=== PATIENT | male | born 1995 ===

== ENCOUNTER 2023-06-23 23:34 | Emergency (ER) | payer MEDICAID ==
[2023-06-24 00:20] LABS: Absolute Lymphocytes (CBC) 1.4 K/uL (0.7-4.9); Hematocrit 41.3 % (39.6-49.0); Lymphocytes % 32.4 % (15.3-44.8); MCV 89.8 fL (80-100); MPV 6.2 fL (7.6-11.3); Platelets 274 thou/uL (152-406)
[2023-06-24 00:27] LABS: Urine Bacteria None Seen /HPF (<20); Urine Bilirubin NEGATIVE (Negative); Urine Blood Negative (Negative); Urine Clarity Clear (Clear); Urine Color Colorless (Yellow); Urine Glucose NEGATIVE (Negative); Urine Protein NEGATIVE (Negative); Urine RBC <5 /HPF (None Seen); Urine Urobilinogen Normal (Normal)
--- NOTE | 2023-06-24 03:10 | ER ---
Nurse's Notes [facility] Name: Tomy Sanchez Age: 27 yrs Sex: Male : 1995 Arrival Date: 06/23/2023 Time: 23:34 Bed 15 Private MD: Diagnosis: Hydrocele, unspecified;Testicular pain, unspecified Presentation: 06/23 23:53 Chief complaint: Patient states: bilateral testicular pain X2 days. pt states that the cm10 pain is intermittent. Pt describes the pain as aching. No urinary symptoms. Coronavirus screen: Vaccine status: Patient reports being unvaccinated. Client denies travel out of the [place] in the last 14 days. Ebola Screen: Patient denies travel to an Ebola-affected area in the 21 days before illness onset. No symptoms or risks identified at this time. Initial Sepsis Screen: Does the patient meet any 2 criteria? No. Patient's initial sepsis screen is negative. Does the patient have a suspected source of infection? No. Patient's initial sepsis screen is negative. Risk Assessment: Do you want to hurt yourself or someone else? Patient reports no desire to harm self or others. Onset of symptoms was June 23, 2023. 23:53 Method Of Arrival: Ambulatory cm10 23:53 Acuity: MAGY 3 cm10 Triage Assessment: 23:56 General: Appears in no apparent distress. comfortable, Behavior is calm, cooperative. cm10 Pain: Complains of pain in groin. Historical: - Allergies: 23:56 Acyclovir; cm10 - PMHx: 23:56 shingles; cm10 - Immunization history:: Adult Immunizations. - Social history:: Smoking status: Patient denies any tobacco usage or history of. - Family history:: not pertinent. Screenin:47 [facility] ED Fall Risk Assessment (Adult) History of falling in the last 3 months, ha1 including since admission No falls in past 3 months (0 pts) Confusion or Disorientation No (0 pts) Intoxicated or Sedated No (0 pts) Impaired Gait No (0 pts) Mobility Assist Device Used No (0 pt) Altered Elimination No (0 pt) Score/Fall Risk Level 0 - 2 = Low Risk Oriented to surroundings, Maintained a safe environment, Educated pt \T\ family on fall prevention, incl call for assistance when getting out of bed, Hourly rounding (assess needs \T\ fall precautionary measures) done. Abuse screen: Denies threats or abuse. Denies injuries from another. Nutritional screening: No deficits noted. Tuberculosis screening: No symptoms or risk factors identified. Assessment: 23:47 General: Appears comfortable, Behavior is calm, cooperative. Pain: Complains of pain in ha1 TESTICULAR Pain does not radiate. Pain currently is 8 out of 10 on a pain scale. Quality of pain is described as pressure, Pain began suddenly, 1 hour ago. Neuro: Level of Consciousness is awake, alert, obeys commands, Oriented to person, place, time, situation. Cardiovascular: Patient's skin is warm and dry. Respiratory: Airway is patent Respiratory effort is even, unlabored, Respiratory pattern is regular, symmetrical. : Reports Scrotal pain: sudden onset. Musculoskeletal: Circulation, motion, and sensation intact. Range of motion: intact in all extremities. 06/24 00:40 Reassessment: Patient and/or family updated on plan of care and expected duration. Pain ha1 level reassessed. Patient is alert, oriented x 3, equal unlabored respirations, skin warm/dry/pink. 01:40 Reassessment: Patient and/or family updated on plan of care and expected duration. Pain ha1 level reassessed. Patient is alert, oriented x 3, equal unlabored respirations, skin warm/dry/pink. 02:40 Reassessment: Patient and/or family updated on plan of care and expected duration. Pain ha1 level reassessed. Patient is alert, oriented x 3, equal unlabored respirations, skin warm/dry/pink. Vital Signs: 06/23 23:53 BP 154 / 77; Pulse 92; Resp 16 S; Temp 98.1(O); Pulse Ox 99% on R/A; Weight 83.91 kg cm10 (R); Height 6 ft. 1 in. (R); Pain 3/10; 06/24 00:30 BP 124 / 74; Pulse 79; Resp 18 S; Pulse Ox 97% on R/A; ha1 01:00 BP 112 / 62; Pulse 62; Resp 18 S; Pulse Ox 97% on R/A; ha1 02:00 BP 118 / 80; Pulse 63; Resp 18 S; Pulse Ox 100% on R/A; ha1 03:00 BP 120 / 78; Pulse 64; Resp 18 S; Pulse Ox 100% on R/A; ha1 06/23 23:53 Body Mass Index 24.41 (83.91 kg, 185.42 cm) cm10 06/23 23:53 Pain Scale: Adult cm10 ED Course: 06/23 23:37 Patient arrived in ED. ag3 23:47 Patient has correct armband on for positive identification. Placed in gown. Bed in low ha1 position. Call light in reach. Side rails up X 1. 23:53 Fatuma Swain, WYATT is Primary Nurse. ha1 23:54 Paolo Suarez MD is Attending Physician. sp4 23:55 Triage completed. cm10 23:56 Arm band placed on Patient placed in an exam room, on a stretcher. cm10 06/24 00:17 Urinalysis W/Microscopic Sent. cg3 00:17 CBC with Diff Sent. cg3 00:17 BMP Sent. cg3 00:17 Inserted saline lock: 20 gauge in right antecubital area, using aseptic technique. cg3 Blood collected. 00:40 US Scrotum Testicles In Process Unspecified. EDMS 03:08 Jacobo Hess MD is Referral Physician. sp4 03:24 No provider procedures requiring assistance completed. IV discontinued, intact, ha1 bleeding controlled, No redness/swelling at site. Pressure dressing applied. 03:25 Provided Education on: FOLLOW UP WITH UROLOGY. ha1 Administered Medications: No medications were administered Medication: 00:01 VIS not applicable for this client. ha1 Outcome: 03:09 Discharge ordered by . sp4 03:24 Discharged to home ambulatory, 1 03:24 Condition: stable 03:24 Discharge instructions given to patient, Instructed on discharge instructions, follow up and referral plans. Demonstrated understanding of instructions, follow-up care, 03:26 Patient left the ED. ha1 Signatures: Dispatcher [employer] EDRI Joana Lilly 3 Fatuma Swain RN RN ha1 Paolo Suarez MD MD sp4 Jasmin Kaur RN RN Hailey Lopez 3
--- NOTE | 2023-06-24 03:10 | EDPHYS ---
Physician Documentation [facility] Name: Tomy Sanchez Age: 27 yrs Sex: Male : 1995 Arrival Date: 06/23/2023 Time: 23:34 Bed 15 Private MD: ED Physician Paolo Suarez HPI: 06/23 23:54 This 27 yrs old Male presents to ER via Unassigned with complaints of sp4 Testicular Pain. 06/24 04:33 27-year-old male presents with several days of testicular pain. sp4 04:33 Primarily patient states that in the last 2 days he had developed bilateral testicular sp4 pain that is intermittent without swelling without redness without the rash without dysuria. Patient reports history of hydroceles. Historical: - Allergies: 06/23 23:56 Acyclovir; cm10 - PMHx: 23:56 shingles; cm10 - Immunization history:: Adult Immunizations. - Social history:: Smoking status: Patient denies any tobacco usage or history of. - Family history:: not pertinent. ROS: 06/24 04:33 Constitutional: Negative for fever, chills, and weight loss, : Negative for injury, sp4 bleeding, discharge, and swelling, positive bilateral testicular pain and that is intermittent All other systems are negative, Exam: 04:33 Constitutional: This is a well developed, well nourished patient who is awake, alert, sp4 and in no acute distress. Head/Face: Normocephalic, atraumatic. Eyes: Pupils equal round and reactive to light, extra-ocular motions intact. Lids and lashes normal. Conjunctiva and sclera are not injected. Cornea within normal limits. Periorbital areas with no swelling, redness, or edema. ENT: Nares patent. No nasal discharge, no septal abnormalities noted. Tympanic membranes are normal and external auditory canals are clear. Oropharynx with no redness, swelling, or masses, exudates, or evidence of obstruction, uvula midline. Mucous membranes moist. Neck: Trachea midline, no thyromegaly or masses palpated, and no cervical lymphadenopathy. Supple, full range of motion without nuchal rigidity, or vertebral point tenderness. Chest/axilla: Normal chest wall appearance and motion. Nontender with no deformity. No lesions are appreciated. Cardiovascular: Regular rate and rhythm with a normal S1 and S2. No gallops, murmurs, or rubs. Normal PMI, no JVD. No pulse deficits. Respiratory: Lungs have equal breath sounds bilaterally, clear to auscultation and percussion. No rales, rhonchi or wheezes noted. No increased work of breathing, no retractions or nasal flaring. Abdomen/GI: Soft, non-tender, with normal bowel sounds. No distension or tympany. No guarding or rebound. No evidence of tenderness throughout. Back: No spinal tenderness. No costovertebral tenderness. Male : Normal genitalia with no discharge or lesions. Size male, no rashes, no redness, no testicular mass, no sign of testicular torsion, no sign of inguinal hernias, no lymphadenopathy, no ulcerations, no urethral discharge overall normal exam Skin: Warm, dry with normal turgor. Normal color with no rashes, no lesions, and no evidence of cellulitis. MS/ Extremity: Pulses equal, no cyanosis. Neurovascular intact. Full, normal range of motion. Neuro: Awake and alert, GCS 15, oriented to person, place, time, and situation. Cranial nerves II-XII grossly intact. Motor strength 5/5 in all extremities. Sensory grossly intact. Psych: Awake, alert, with orientation to person, place and time. Behavior, mood, and affect are within normal limits Vital Signs: 06/23 23:53 BP 154 / 77; Pulse 92; Resp 16 S; Temp 98.1(O); Pulse Ox 99% on R/A; Weight 83.91 kg cm10 (R); Height 6 ft. 1 in. (R); Pain 3/10; 06/24 00:30 BP 124 / 74; Pulse 79; Resp 18 S; Pulse Ox 97% on R/A; ha1 01:00 BP 112 / 62; Pulse 62; Resp 18 S; Pulse Ox 97% on R/A; ha1 02:00 BP 118 / 80; Pulse 63; Resp 18 S; Pulse Ox 100% on R/A; ha1 03:00 BP 120 / 78; Pulse 64; Resp 18 S; Pulse Ox 100% on R/A; ha1 06/23 23:53 Body Mass Index 24.41 (83.91 kg, 185.42 cm) cm10 06/23 23:53 Pain Scale: Adult cm10 MDM: 00:02 Patient medically screened. sp4 03:03 ED course: US - TECHNIQUE: Real-time ultrasound of the scrotum with color Doppler and sp4 image documentation. COMPARISON: No relevant prior studies available. FINDINGS: Right testicle: The right testis measures 5.4 x 3 x 4.1 cm. Homogeneous echotexture. No torsion. Left testicle: The left testis measures 5.4 x 2.3 x 3.2 cm. Homogeneous echotexture. No torsion. Epididymides: Unremarkable. Scrotum: Trace bilateral hydroceles. IMPRESSION: Normal testicular flow bilaterally without sonographic evidence for torsion. 04:33 Differential diagnosis: urinary retention, prostatitis, urethritis, Epididymitis. Data sp4 reviewed: vital signs. Data reviewed: lab test result(s), CBC, electrolytes, hepatic panel, radiologic studies, ultrasound. Consideration of Admission/Observation Escalation of care including admission/observation considered. ED course: Labs today unremarkable. Ultrasound reveals small hydroceles which is not dangerous, patient stable for discharge home will advise follow-up with urology as needed for worsening or persistent symptoms. 06/24 00:01 Order name: Urinalysis W/Microscopic; Complete Time: 03:03 sp4 06/24 00:01 Order name: CBC with Diff; Complete Time: 03:03 sp4 06/24 00:01 Order name: BMP; Complete Time: 03:03 sp4 06/24 00:02 Order name: US Scrotum Testicles sp4 Administered Medications: No medications were administered Disposition Summary: 06/24/23 03:09 Discharge Ordered Problem: new sp4 Symptoms: have improved sp4 Condition: Stable sp4 Diagnosis - Hydrocele, unspecified sp4 - Testicular pain, unspecified sp4 Followup: sp4 - With: Jacobo Hess MD - When: 7 - 10 days - Reason: Recheck today's complaints Discharge Instructions: - Discharge Summary Sheet sp4 - Hydrocele, Adult sp4 Forms: - Patient Portal Instructions sp4 Signatures: Dispatcher [employer] Paolo Quick MD MD sp4 Jasmin Kaur, RN RN cm10
[2023-06-24 03:42] VITALS: TEMP 98.1
[2023-06-24 03:59] VITALS: O2SAT 100
[2023-06-24 04:00] VITALS: BP 120/78
--- NOTE | 2023-06-24 13:53 | RAD REPORT ---
EXAM DESCRIPTION: US - Scrotum Testicles - 06/24/2023 12:39 am CLINICAL HISTORY: Bilateral testicular pain TECHNIQUE: Real-time ultrasound of the scrotum with color Doppler and image documentation. COMPARISON: No relevant prior studies available. FINDINGS: Right testicle: The right testis measures 5.4 x 3 x 4.1 cm. Homogeneous echotexture. No torsion. Left testicle: The left testis measures 5.4 x 2.3 x 3.2 cm. Homogeneous echotexture. No torsion . Epididymides: Unremarkable. Scrotum: Trace bilateral hydroceles. IMPRESSION: Normal testicular flow bilaterally without sonographic evidence for torsion. Electronically signed by: Cheryl Kwon MD 06/24/2023 1:21 AM CDT Due to temporary technical issues with the PACS/Fluency reporting system, reports are being signed by the in house radiologists without review as a courtesy to insure prompt reporting. The interpreting radiologist is fully responsible for the content of the report.
== END 2023-06-24 03:26 | disposition home or self-care (01) ==
LOC: ER 23:34
DX: N43.3 Hydrocele, unspecified (principal)
CPT/HCPCS: 36415; 76870; 80048; 81001; 85025; 99284

== ENCOUNTER 2023-06-24 20:44 | Emergency (ER) | payer MEDICAID ==
[2023-06-24 21:16] LABS: Urine Bacteria None Seen /HPF (<20); Urine Bilirubin NEGATIVE (Negative); Urine Blood Negative (Negative); Urine Clarity Clear (Clear); Urine Color Light-Yellow (Yellow); Urine Glucose NEGATIVE (Negative); Urine Mucus Slight /HPF (None Seen); Urine Protein TRACE (Negative); Urine RBC <5 /HPF (None Seen); Urine Urobilinogen Normal (Normal); Urine pH 6.5 (5.0-7.0)
[2023-06-24 21:29] LABS: Albumin 4.1 g/dL (3.4-5.0); Bilirubin Total 0.3 mg/dL (0.2-1.0); Potassium 3.8 mEq/L (3.5-5.1)
[2023-06-24] MEDS ORDERED: ONDANSETRON 4 MG (ODT) TAB ONE (21:53)
[2023-06-24] MEDS ORDERED: metroNIDAZOLE 500 MG TABLET ONE (21:53)
[2023-06-24] MEDS ORDERED: CEFTRIAXONE 500 MG/VIAL ONE (21:53)
[2023-06-24] MEDS ORDERED: DOXYCYCLINE 100 MG CAP PO ONE (21:53)
[2023-06-24] MEDS ORDERED: WATER FOR INJ,STERILE 10 ML ONE (21:54)
--- NOTE | 2023-06-24 22:11 | EDPHYS ---
Physician Documentation [facility] [place] [place] Name: Tomy Sanchez Age: 27 yrs Sex: Male : 1995 Arrival Date: 06/24/2023 Time: 20:44 Bed 11 Private MD: ED Physician Paolo Suarez HPI: 06/24 21:30 This 27 yrs old Male presents to ER via Ambulatory with complaints of Pain sp4 With Urination. 06/25 04:32 27-year-old male presents with burning with urination. Patient was seen here This sp4 morning for testicular discomfort. Patient was given a full work-up including scrotal ultrasound, carotid ultrasound revealed some small hydroceles but no emergent problem. A urinalysis and blood work were unremarkable. Patient was discharged with advised to take ibuprofen as needed. . Historical: - Allergies: 06/24 20:56 acyclovir; ap3 - Home Meds: 20:56 None [Active]; ap3 - PMHx: 20:56 shingles; ap3 - Immunization history:: Client reports having NOT received the Covid vaccine. - Social history:: Smoking status: Patient denies any tobacco usage or history of. - Family history:: not pertinent. ROS: 06/25 04:34 Constitutional: Negative for fever, chills, and weight loss, positive pain and sp4 burning with urination : Negative for injury, bleeding, discharge, and swelling, positive burning with urination All other systems are negative, Exam: 04:34 Constitutional: This is a well developed, well nourished patient who is awake, alert, sp4 and in no acute distress. Head/Face: Normocephalic, atraumatic. Eyes: Pupils equal round and reactive to light, extra-ocular motions intact. Lids and lashes normal. Conjunctiva and sclera are not injected. Cornea within normal limits. Periorbital areas with no swelling, redness, or edema. ENT: Nares patent. No nasal discharge, no septal abnormalities noted. Tympanic membranes are normal and external auditory canals are clear. Oropharynx with no redness, swelling, or masses, exudates, or evidence of obstruction, uvula midline. Mucous membranes moist. Neck: Trachea midline, no thyromegaly or masses palpated, and no cervical lymphadenopathy. Supple, full range of motion without nuchal rigidity, or vertebral point tenderness. Chest/axilla: Normal chest wall appearance and motion. Nontender with no deformity. No lesions are appreciated. Cardiovascular: Regular rate and rhythm with a normal S1 and S2. No gallops, murmurs, or rubs. Normal PMI, no JVD. No pulse deficits. Respiratory: Lungs have equal breath sounds bilaterally, clear to auscultation and percussion. No rales, rhonchi or wheezes noted. No increased work of breathing, no retractions or nasal flaring. Abdomen/GI: Soft, non-tender, with normal bowel sounds. No distension or tympany. No guarding or rebound. No evidence of tenderness throughout. Back: No spinal tenderness. No costovertebral tenderness. Male : Normal genitalia with no discharge or lesions. Skin: Warm, dry with normal turgor. Normal color with no rashes, no lesions, and no evidence of cellulitis. MS/ Extremity: Pulses equal, no cyanosis. Neurovascular intact. Full, normal range of motion. Neuro: Awake and alert, GCS 15, oriented to person, place, time, and situation. Cranial nerves II-XII grossly intact. Motor strength 5/5 in all extremities. Sensory grossly intact. Psych: Awake, alert, with orientation to person, place and time. Behavior, mood, and affect are within normal limits Vital Signs: 06/24 20:54 BP 159 / 90; Pulse 88; Resp 18; Temp 98.7; Pulse Ox 100% ; Weight 83.91 kg; Pain 2/10; ap3 20:54 Pain Scale: Adult ap3 MDM: 20:53 Patient medically screened. sp4 06/25 04:34 Differential Diagnosis Urethritis, STD, syphilis, UTI. Data reviewed: vital signs, sp4 nurses notes, old medical records, lab test result(s), CBC, electrolytes, urinalysis. ED course: Urinalysis today is normal however since patient has prominent symptoms and secondary to second visit to the emergency room he will be treated for presumed acute urethritis. . 06/24 20:51 Order name: Urinalysis W/Microscopic; Complete Time: 21:29 sp4 06/24 20:52 Order name: CMP; Complete Time: 21:29 sp4 Administered Medications: 06/24 21:53 Drug: metroNIDAZOLE PO 500 mg PO once Route: PO; ap3 22:19 Follow up: Response: No adverse reaction ap3 21:53 Drug: Ondansetron PO 4 mg PO once Route: PO; ap3 22:19 Follow up: Response: No adverse reaction ap3 21:53 Drug: Doxycycline PO 100 mg PO once Route: PO; ap3 22:19 Follow up: Response: No adverse reaction ap3 22:01 Drug: Rocephin (cefTRIAXone) IM 500 mg IM once Route: IM; Site: right gluteus; ap3 22:19 Follow up: Response: No adverse reaction ap3 Disposition Summary: 06/24/23 22:10 Discharge Ordered Notes: Location: Home sp4 Problem: new sp4 Symptoms: are unchanged sp4 Condition: Stable sp4 Diagnosis - Nonspecific urethritis sp4 Followup: sp4 - With: Jacobo eHss MD - When: 7 - 10 days - Reason: Recheck today's complaints Discharge Instructions: - Discharge Summary Sheet sp4 - Urethritis, Adult sp4 Forms: - Patient Portal Instructions sp4 Prescriptions: - Flagyl 500 mg Oral tablet - take 1 tablet ORAL route every 12 hours for 5 days; 10 tablet; Refills: 0, sp4 Product Selection Permitted - Doxycycline Monohydrate 100 mg Oral Tablet - take 1 tablet ORAL route every 12 hours for 10 days; 20 tablet; Refills: 0, sp4 Product Selection Permitted Signatures: Dispatcher [employer] Tanya Arias RN RN ap3 Paolo Suarez MD MD sp4 Corrections: (The following items were deleted from the chart) 06/25 04:33 04:32 27-year-old male presents with burning with urination. Patient was seen here sp4 yesterday for testicular discomfort. Patient was given a full work-up including scrotal ultrasound, carotid ultrasound revealed some small hydroceles but no emergent problem. A urinalysis and blood work were unremarkable. Patient was discharged with advised to take ibuprofen as needed. . sp4
--- NOTE | 2023-06-24 22:11 | ER ---
Nurse's Notes [facility] Name: Tomy Sanchez Age: 27 yrs Sex: Male : 1995 Arrival Date: 06/24/2023 Time: 20:44 Bed 11 Private MD: Diagnosis: Nonspecific urethritis Presentation: 06/24 20:54 Chief complaint: Patient states: he was evaluated last night, but has now developed ap3 burning with urination. Coronavirus screen: At this time, the client does not indicate any symptoms associated with coronavirus-19. Ebola Screen: No symptoms or risks identified at this time. Initial Sepsis Screen: Does the patient meet any 2 criteria? No. Patient's initial sepsis screen is negative. Does the patient have a suspected source of infection? Yes: Dysuria/Frequency/Urgency/UTI. Risk Assessment: Do you want to hurt yourself or someone else? Patient reports no desire to harm self or others. Onset of symptoms is unknown. 20:54 Method Of Arrival: Ambulatory ap3 20:54 Acuity: MAGY 4 ap3 Triage Assessment: 20:56 General: Appears in no apparent distress. Behavior is calm, cooperative, appropriate ap3 for age. Pain: Complains of pain in pelvis Aggravated by urination. Neuro: Level of Consciousness is awake, alert, obeys commands, Oriented to person, place, time, situation. Cardiovascular: Patient's skin is warm and dry. Respiratory: Airway is patent Respiratory effort is even, unlabored, Respiratory pattern is regular, symmetrical. : Reports burning with urination, urinary frequency. Historical: - Allergies: 20:56 acyclovir; ap3 - Home Meds: 20:56 None [Active]; ap3 - PMHx: 20:56 shingles; ap3 - Immunization history:: Client reports having NOT received the Covid vaccine. - Social history:: Smoking status: Patient denies any tobacco usage or history of. - Family history:: not pertinent. Screenin:57 [facility] ED Fall Risk Assessment (Adult) History of falling in the last 3 months, ap3 including since admission No falls in past 3 months (0 pts). Abuse screen: Denies threats or abuse. Nutritional screening: No deficits noted. Tuberculosis screening: No symptoms or risk factors identified. Assessment: 22:02 Reassessment: Patient and/or family updated on plan of care and expected duration. Pain ap3 level reassessed. Patient is alert, oriented x 3, equal unlabored respirations, skin warm/dry/pink. General:. Vital Signs: 20:54 BP 159 / 90; Pulse 88; Resp 18; Temp 98.7; Pulse Ox 100% ; Weight 83.91 kg; Pain 2/10; ap3 20:54 Pain Scale: Adult ap3 ED Course: 20:46 Patient arrived in ED. ag3 20:51 Paolo Suarez MD is Attending Physician. sp4 20:54 Tanya Ramirez, WYATT is Primary Nurse. ap3 20:56 Triage completed. ap3 20:57 Arm band placed on right wrist. ap3 20:57 Patient has correct armband on for positive identification. Bed in low position. Call ap3 light in reach. Pulse ox on. NIBP on. Door closed. Noise minimized. 20:57 No provider procedures requiring assistance completed. ap3 21:07 CMP Sent. ap3 21:07 Urinalysis W/Microscopic Sent. ap3 21:07 Initial lab(s) drawn, by az, sent to lab. Urine collected: clean catch specimen, clear. ap3 Inserted saline lock: 22 gauge in left antecubital area, using aseptic technique. Blood collected. 22:05 Provided Education on: medications prior to administration. ap3 22:05 IV discontinued, intact, bleeding controlled, No redness/swelling at site. Pressure ap3 dressing applied. 22:10 Derek Lopez MD is Referral Physician. sp4 22:10 Jacobo Hess MD is Referral Physician. sp4 Administered Medications: 21:53 Drug: metroNIDAZOLE PO 500 mg PO once Route: PO; ap3 22:19 Follow up: Response: No adverse reaction ap3 21:53 Drug: Ondansetron PO 4 mg PO once Route: PO; ap3 22:19 Follow up: Response: No adverse reaction ap3 21:53 Drug: Doxycycline PO 100 mg PO once Route: PO; ap3 22:19 Follow up: Response: No adverse reaction ap3 22:01 Drug: Rocephin (cefTRIAXone) IM 500 mg IM once Route: IM; Site: right gluteus; ap3 22:19 Follow up: Response: No adverse reaction ap3 Medication: 20:57 VIS not applicable for this client. ap3 Outcome: 22:10 Discharge ordered by . sp4 22:19 Discharged to home ambulatory, ap3 22:19 Condition: good 22:19 Discharge instructions given to patient, Instructed on discharge instructions, follow up and referral plans. Demonstrated understanding of instructions, follow-up care, medications, Prescriptions given X , :19 Patient left the ED. ap3 Signatures: Tanya Ramirez RN RN ap3 Joana Lilly3 Paolo Suarez MD MD sp4
[2023-06-24 22:29] VITALS: BP 159/90; TEMP 98.7; O2SAT 100
== END 2023-06-24 22:19 | disposition home or self-care (01) ==
LOC: ER 20:44
DX: N34.1 Nonspecific urethritis (principal)
CPT/HCPCS: 81001; 36415; 80053; 96372; 99284; Q0162

== ENCOUNTER 2023-07-03 15:39 | Emergency (ER) | payer MEDICAID ==
[2023-07-03 16:11] LABS: Specific Gravity < 1.005 (1.005-1.030); Urine Bilirubin NEGATIVE (Negative); Urine Blood Negative (Negative); Urine Clarity Clear (Clear); Urine Color Colorless (Yellow); Urine Glucose NEGATIVE (Negative); Urine Protein NEGATIVE (Negative); Urine Urobilinogen Normal (Normal)
--- NOTE | 2023-07-03 17:07 | EDPHYS ---
Physician Documentation [facility] Name: Tomy Sanchez Age: 27 yrs Sex: Male : 1995 Arrival Date: 07/03/2023 Time: 15:39 Bed 12 Private MD: ED Physician Willis Quiñones HPI: 07/03 15:56 This 27 yrs old Male presents to ER via Ambulatory with complaints of Penile ec2 Problem, Pain With Urination. 15:56 Patient arrives today due to concern for persistent penile irritation. Patient reports ec2 that he was recently seen for the same complaints and was started on STI antibiotics. Patient reports that he occasionally spearing some penile discomfort upon urination. Reports that he also has some irritation. Does report that he regularly masturbates. Patient reports no penile discharge. Patient reports no fevers or chills, no nausea or vomiting. Patient denies any abdominal pain.. Historical: - Allergies: 15:49 acyclovir; ko1 - PMHx: 15:49 shingles; ko1 - Immunization history:: Adult Immunizations up to date. - Social history:: Smoking status: Patient denies any tobacco usage or history of. ROS: 15:56 Constitutional: penile complaints as per hpi ec2 Exam: 15:56 Constitutional: PHYSICAL EXAMINATION: GENERAL: No acute distress HEENT: Extraocular ec2 motions intact CV: Regular rate LUNGS: No respiratory distress ABDOMEN: Nondistended : Penis with some minor irritation to the distal end of the shaft, no lesions appreciated, no skin breakdown, no discoloration or crepitus. Testicles without significant pain or discomfort on evaluation. NEUROLOGIC: Moves all extremities equally Vital Signs: 15:46 BP 154 / 77; Pulse 88; Resp 16; Temp 98.2; Pulse Ox 99% ; ko1 MDM: 15:45 Patient medically screened. kb 15:56 Data reviewed: vital signs. ec2 15:56 ED course: AnyPatient arrives today due to concern for penile discomfort. Examination ec2 markable well-appearing nontoxic individual was in no acute distress with reassuring vital signs and overall reassuring examination with some minor skin irritation noted to the distal end of the shaft. Will obtain a urinalysis to further evaluate for UTI. Currently considering UTI, lower suspicion for STI given recent antibiotic therapy, low suspicion for testicular pathology given the patient's exam.. 17:05 ED course: Under assessment patient is well-appearing in no acute distress. I will ec2 discharge patient home with a prescription for Pyridium and have him follow-up with the primary care doctor and urologist. States that he has a urology appointment in just over 1 week. Return precautions given.. 07/03 15:56 Order name: Urinalysis w/ reflexes; Complete Time: 16:13 ec2 Administered Medications: No medications were administered Disposition Summary: 07/03/23 17:07 Discharge Ordered Notes: Location: Home ec2 Condition: Stable ec2 Diagnosis - Dysuria ec2 - Penile Irritation ec2 Discharge Instructions: - Discharge Summary Sheet ec2 - Dysuria ec2 Forms: - Medication Reconciliation Form ec2 - Thank You Letter ec2 - Antibiotic Education ec2 - Prescription Opioid Use ec2 - Patient Portal Instructions ec2 - Leadership Thank You Letter ec2 Prescriptions: - Pyridium 200 mg Oral Tablet - take 1 tablet ORAL route every 8 hours for 3 days; 9 tablet; Refills: 0, ec2 Product Selection Permitted Signatures: Dispatcher [employer] Mignon Evans, ALESSANDRO-C ALESSANDRO-Valarie Dailey, RN RN ko1 Willis Quiñones MD MD ec2
--- NOTE | 2023-07-03 17:07 | ER ---
Nurse's Notes [facility] Name: Tomy Sanchez Age: 27 yrs Sex: Male : 1995 Arrival Date: 07/03/2023 Time: 15:39 Bed 12 Private MD: Diagnosis: Dysuria;Penile Irritation Presentation: 07/03 15:46 Chief complaint: Patient states: was here 8 days ago with burning on urination, has ko1 been taking meds as prescribed but its not getting better. Still burning when I pee and even afterward. Irritation on penis. Coronavirus screen: At this time, the client does not indicate any symptoms associated with coronavirus-19. Ebola Screen: No symptoms or risks identified at this time. Initial Sepsis Screen: Does the patient meet any 2 criteria? No. Patient's initial sepsis screen is negative. Does the patient have a suspected source of infection? No. Patient's initial sepsis screen is negative. Risk Assessment: Do you want to hurt yourself or someone else? Patient reports no desire to harm self or others. Onset of symptoms was July 03, 2023. 15:46 Method Of Arrival: Ambulatory ko1 15:46 Acuity: MAGY 4 ko1 Triage Assessment: 15:49 General: Appears in no apparent distress. Behavior is calm, cooperative, appropriate ko1 for age. Pain: Complains of pain in upon urination. Historical: - Allergies: 15:49 acyclovir; ko1 - PMHx: 15:49 shingles; ko1 - Immunization history:: Adult Immunizations up to date. - Social history:: Smoking status: Patient denies any tobacco usage or history of. Screenin:50 [facility] ED Fall Risk Assessment (Adult) History of falling in the last 3 months, ko1 including since admission No falls in past 3 months (0 pts) Confusion or Disorientation No (0 pts) Intoxicated or Sedated No (0 pts) Impaired Gait No (0 pts) Mobility Assist Device Used No (0 pt) Altered Elimination No (0 pt) Score/Fall Risk Level 0 - 2 = Low Risk Oriented to surroundings, Maintained a safe environment, Educated pt \T\ family on fall prevention, incl call for assistance when getting out of bed, Assessed \T\ reinforced patient's understanding of fall precautions, Provided non-skid footwear, Hourly rounding (assess needs \T\ fall precautionary measures) done, Used ambulatory aids as needed (educated on \T\ assisted with), Used gait belt as appropriate. Abuse screen: Denies threats or abuse. Denies injuries from another. Nutritional screening: No deficits noted. Tuberculosis screening: No symptoms or risk factors identified. Assessment: 16:05 General: Appears in no apparent distress. comfortable, Behavior is calm, cooperative. cm10 Pain: Complains of pain in groin. Neuro: No deficits noted. Level of Consciousness is awake, alert, obeys commands, Oriented to person, place, time, situation. Cardiovascular: No deficits noted. Patient's skin is warm and dry. Respiratory: No deficits noted. Airway is patent Respiratory effort is even, unlabored, Respiratory pattern is regular, symmetrical. GI: No deficits noted. Abdomen is flat. : Reports burning with urination. EENT: No deficits noted. No signs and/or symptoms were reported regarding the EENT system. Derm: No deficits noted. No signs and/or symptoms reported regarding the dermatologic system. Skin is intact, Skin is pink, warm \T\ dry. Musculoskeletal: No deficits noted. Range of motion: intact in all extremities. Vital Signs: 15:46 BP 154 / 77; Pulse 88; Resp 16; Temp 98.2; Pulse Ox 99% ; ko1 ED Course: 15:44 Patient arrived in ED. im 15:45 Mignon Garduno [facility]-C [facility]. kb 15:45 Willis Quiñones MD is Attending Physician. kb 15:49 Triage completed. ko1 15:49 Arm band placed on right wrist. Patient notified of wait time. ko1 15:50 Patient has correct armband on for positive identification. Provided Education on: na. ko1 16:05 Jasmin Kaur, WYATT is Primary Nurse. cm10 16:06 Urine collected: clean catch specimen, clear. cm10 17:13 No provider procedures requiring assistance completed. Patient did not have IV access cm10 during this emergency room visit. Administered Medications: No medications were administered Medication: 15:50 VIS not applicable for this client. ko1 Outcome: 17:07 Discharge ordered by . ec2 17:13 Discharged to home ambulatory, cm10 17:13 Condition: good 17:13 Discharge instructions given to patient, Instructed on discharge instructions, follow up and referral plans. medication usage, Demonstrated understanding of instructions, follow-up care, medications, Prescriptions given X 1, 17:13 Patient left the ED. cm10 Signatures: Mignon Garduno, CALLIE FRANCOIS-Valarie Dailey, WYATT RN ko1 Tamera Thomas Clarissa, RN RN cm10 Willis Quiñones MD MD ec2
[2023-07-03 17:22] VITALS: BP 154/77; TEMP 98.2; O2SAT 99
== END 2023-07-03 17:13 | disposition home or self-care (01) ==
LOC: ER 15:39
DX: R30.0 Dysuria (principal); N48.89 Other specified disorders of penis
CPT/HCPCS: 81003; 99283